=== PATIENT | female | born 1990 | race Caucasian/White ===

== ENCOUNTER 2022-01-01 14:19 | Outpatient (REF) | payer OTHER, SELFPAY ==
[2022-01-01 17:54] LABS: MANUAL DIFF FLAG NO
[2022-01-01 18:09] LABS: Alanine Aminotransferase 12 U/L (0-31); Albumin Level 4.2 g/dL (3.5-5.0); Alkaline Phosphatase 86 U/L (39-117); Anion Gap 13 (12-20); Aspartate Amino Transferase 19 U/L (5-31); Bilirubin Total 0.6 mg/dL (0.0-1.0); Blood Urea Nitrogen 16 mg/dL (9-16); Calcium 9.1 mg/dL (8.4-10.2); Carbon Dioxide 26 mmol/L (22-29); Chloride 104 mmol/L (96-108); Estimated Glomerular Filt Rate > 60; Glucose Random 90 mg/dL (60-115); Potassium 4.1 mmol/L (3.3-5.1); Sodium 139 mmol/L (135-145); Total Protein 7.2 g/dL (6.5-8.0)
[2022-01-01 18:14] LABS: Basophils Absolute Auto 0.1 X10*3/uL (0.0-0.2); Basophils Percent Auto 0.4 % (0-2); Eosinophils Absolute Auto 0.2 X10*3/uL (0.0-0.4); Eosinophils Percent Auto 1.6 % (0-4); Hemoglobin 13.9 g/dl (12.0-16.0); Imm Gran Abs Auto 0.03 X10*3/uL (0.00-0.03); Imm Gran Pct Auto 0.2 % (0.0-0.4); Lymphocytes Absolute Auto 2.6 X10*3/uL (1.2-4.9); Lymphocytes Percent Auto 21.5 % (20-40); Mean Corpuscular HGB Conc 33.9 g/dl (31.0-35.0); Mean Corpuscular Hemoglobin 31.7 pg (27.0-33.0); Mean Corpuscular Volume 93.6 fL (80.0-98.0); Mean Platelet Volume 11.1 fL (9.4-12.3); Monocytes Absolute Auto 0.6 X10*3/uL (0.1-1.2); Monocytes Percent Auto 5.3 % (2-11); Neutrophils Absolute Auto 8.6 x10*3/uL (2.0-8.3); Platelet Count 279 X10*3/uL (160-400); Red Blood Count 4.38 X10*6/uL (4.20-5.50); Red Cell Distribution Width 12.1 % (11.0-16.0); White Blood Count 12.2 X10*3/uL (4.8-10.8)
== END 2022-01-01 14:20 | disposition home or self-care (01) ==
LOC: HO.MANLDS 14:19
PROVIDERS: Visit Provider Physician Assistant
DX: J30.1 Allergic rhinitis due to pollen (principal)
CPT/HCPCS: 36415; 80053; 85025

== ENCOUNTER 2023-04-01 07:39 | Outpatient (REF) | payer OTHER, SELFPAY ==
[2023-04-01 13:56] LABS: MANUAL DIFF FLAG NO
[2023-04-01 14:04] LABS: Basophils Percent Auto 0.6 % (0-2); Eosinophils Absolute Auto 0.2 X10*3/uL (0.0-0.4); Hematocrit 40.6 % (37.0-47.0); Hemoglobin 13.6 g/dl (12.0-16.0); Imm Gran Abs Auto 0.01 X10*3/uL (0.00-0.03); Imm Gran Pct Auto 0.2 % (0.0-0.4); Lymphocytes Percent Auto 31.4 % (20-40); Mean Corpuscular HGB Conc 33.5 g/dl (31.0-35.0); Mean Corpuscular Hemoglobin 31.9 pg (27.0-33.0); Mean Corpuscular Volume 95.1 fL (80.0-98.0); Mean Platelet Volume 10.9 fL (9.4-12.3); Monocytes Absolute Auto 0.4 X10*3/uL (0.1-1.2); Monocytes Percent Auto 6.7 % (2-11); Neutrophils Absolute Auto 3.7 x10*3/uL (2.0-8.3); Neutrophils Percent Auto 58.1 % (45-73); Platelet Count 313 X10*3/uL (160-400); Red Blood Count 4.27 X10*6/uL (4.20-5.50); White Blood Count 6.4 X10*3/uL (4.8-10.8)
[2023-04-01 14:37] LABS: Erythrocyte Sedimentation Rate 5 MM/HR (0-20)
[2023-04-01 15:20] LABS: Alanine Aminotransferase 12 U/L (0-31); Albumin Level 3.9 g/dL (3.5-5.0); Alkaline Phosphatase 66 U/L (39-117); Amylase 56 U/L (28-100); Anion Gap 7 (12-20); Aspartate Amino Transferase 18 U/L (5-31); Blood Urea Nitrogen 12 mg/dL (9-16); C Reactive Protein < 0.10 mg/dL (< or = 0.50); Calcium 8.7 mg/dL (8.4-10.2); Carbon Dioxide 29 mmol/L (22-29); Chloride 107 mmol/L (96-108); Estimated Glomerular Filt Rate > 60; Gamma Glutamyl Transpeptidase 22 U/L (7-33); Glucose Random 58 mg/dL (60-115); Lipase 22 U/L (8-78); Potassium 3.3 mmol/L (3.3-5.1); Sodium 140 mmol/L (135-145)
== END 2023-04-01 07:40 | disposition home or self-care (01) ==
LOC: HO.MANLDS 07:39
PROVIDERS: Visit Provider Physician Assistant
DX: R19.7 Diarrhea, unspecified (principal)
CPT/HCPCS: 36415; 80053; 82150; 82977; 83690; 85025; 85652; 86140

== ENCOUNTER 2024-12-22 15:35 | Outpatient (REF) | payer OTHER, SELFPAY ==
--- NOTE | ~2024-12-22 | XR_ITS ---
EXAMINATION: XR SHOULDER, RIGHT CLINICAL INFORMATION: BICEPS TENDINITIS OF RT ICD-10 M75.21 COMPARISON: None available. TECHNIQUE: AP external rotation, Grashey, scapular Y, and axillary views of the right shoulder. FINDINGS: No acute cortical disruption or malalignment. No lytic or blastic lesions. Acromioclavicular joint gap is 3.3 mm. No soft tissue calcifications. No metallic or radiopaque foreign body. No subcutaneous emphysema. XR/XR shoulder RT min 2V IMPRESSION: Normal x-ray, right shoulder. Electronically signed by: Tray Arrington MD 12/22/2024 03:58 PM EDT
--- OUTSIDE RECORDS SUMMARY | 2024-12-22 19:04 | XMS_ITS | Data Portability ---
Author Organization [facility], Telehealth Patient Home Address [address] [place] [address] Assessment No assessment recorded. Plan of Treatment Reminders Order Date Submit Date Provider Last Modified By Organization Details Last Modified Time Details Appointments FOLLOW UP 15 2024 02:30P KHUSHBOO RANDOLPH Not available Not available Not available ANNUAL EXAM 2025 11:45A KHUSHBOO RANDOLPH Not available Not available Not available Lab CMP, serum or plasma 2024 025 [facility], [address] [place] [address], [place], [address], 05/31/2024 16:05:31 CBC w/ auto diff 2024 025 [facility], [address] [place] [address], [place], [address], 05/31/2024 16:05:31 lipid panel, blood 2024 025 [facility], [address] [place] [address], [place], [address], 05/31/2024 16:05:31 rapid strep group A, throat 2023 024 [facility], [address] [facility], [facility] [address], [place], [address], 04/16/2023 15:17:09 Referral dermatolo gist referral 2024 025 [email or web address] Rosa M eJnsen MD, [address] [place], [address], 06/01/2024 08:37:10 Procedures None recorded. Surgeries None recorded. Imaging XR, shoulder, 2 or more view 2024 [email or web address] [facility], [address] [place], [address], 12/22/2024 16:13:05 Medication Orders diclofena c sodium 75 mg tablet,de layed release 2024 025 [facility] #[id number], [address] [place], [id number], 12/22/2024 14:59:50 clotrimaz ole-betam ethasone 1 %-0.05 % topical cream 2024 025 [facility] #[id number], [address], [place], [id number], 05/31/2024 15:51:19 Medrol (Bossman) 4 mg tablets in a dose pack 2023 025 [facility] #79235, [address], [place], [phone], 05/31/2024 15:31:32 Zithromax Z-Bossman 250 mg tablet [email or web address] [place] [address] [address], [address], [place], [id number], 05/31/2024 15:29:54 Patient TargetsNo targets recorded. Patient InstructionsNo instructions recorded. Reason for Referral Globe [facility]er Referral for L esion of skin of face prevous pt, new spot on the nose, ?squamous cell Referring Physician: Deyanira Clifton, Internal Medicine, Encounter Date: 05/31/2024 Results Created Date Observation Date Name Description Value Unit Range Abnormal Flag Note LastModifiedBy Organization Detail LastModifiedTime 04/16/19 24 04/16/2023 rapid strep group A, throa t Strep negati ve Not Available [facility] [address] [facility] [address], [place], [address], 04/16/2023 14:58:23 12/23/19 25 12/22/2024 XR, shoul teddy, 2 or more view No observ ation record ed. [email or web address] [address] [place], [address], 12/22/2024 17:01:03 Result Notes None recorded. Problems Name Problem SNOMED Code Status Onset Date Resolution Date Notes Provider Name and Address Organization Details Recorded Time Allergic rhinitis 52380483 Active 2018 Not Available [facility] 0 13:14:09 Migraine 61291655 Active 2018 Not [address] 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 0 13:14:09 Eczema 72615280 Completed 201809/23/2018 [facility] 9 08:39:37 Acute otitis media 9448129 Active 2021 KHUSHBOO LORENZ [address] [place], [address], [facility] 2 14:03:09 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 525404088 Active 2022 KHUSHBOO LORENZ [address] [place], [address], [facility] 3 15:56:15 Diarrhea 91774729 Active 2023 KHUSHBOO LORENZ [address] [place], [address], [facility] 4 12:30:04 Sore throat 895822529 Active 2023 KHUSHBOO LORENZ [address] [place], [address], [facility] 4 10:13:27 Pain of ear 105949468 Active 2023 KHUSHBOO LORENZ [address] [place], [address], [facility] 4 10:16:38 Acute pharyngi tis 861556559 Active 2023 KHUSHBOO LORENZ [address] [place], [address], [facility] 4 15:53:55 Skin lesion 90380377 Active 2024 KHUSHBOO LORENZ [address] [place] [address], [address], [facility] 5 15:47:47 Lesion of skin of face 1681744812 06 Active 2024 KHUSHBOO LORENZ [address] [place] [address], [address], [facility] 5 15:48:06 Tinea corporis 34707438 Active 2024 KHUSHBOO LORENZ [address] [place] [address], [address], [facility] 5 15:50:44 Tendinit is of right biceps brachii Active 2024 KHUSHBOO LORENZ [address] [place] [address], [address], [facility] 5 14:57:13 Biceps tendinit is 123223810 Active 2024 KHUSHBOO LORENZ [address] [place] [address], [address], [facility] 5 16:42:04 Problem Notes None recorded. Procedures Surgical History Date Name Laterality Status Provider Name and Address Organization Details Recorded Time 04/29/19 18 Date of Last Pap Smear completed Ivonne Malone [facility] 09/23/2018 08:26:16 myringotomy and insertion of tympanic ventilation tube completed June FELIPE Whitley [address] [facility], [place], [address], [facility] 09/25/2018 10:24:16 Imaging Results None recorded. Procedure Notes None recorded. Medical Equipment None Reported. Allergies No known drug allergies Medications Name Sig Start Date Stop Date Status Note LastModified by Organization Details LastModified Time acetaminoph en 325 mg tablet 05/02 completed Not Available Not Available Not Available cetirizine 10 mg tablet TAKE 1 TABLET BY MOUTH DAILY active Not Available Not Available No t Available azithromyci n 250 mg tablet TAKE 2 TABLETS (500 MG) BY ORAL ROUTE ONCE DAILY FOR 1 DAY THEN 1 TABLET (250 MG) BY ORAL ROUTE ONCE DAILY FOR 4 DAYS 05/31 completed Not Available Not Available Not Available ibuprofen 800 mg tablet 05/02 completed Not Available Not Available Not Available fluconazole 150 mg tablet TAKE 1 TABLET BY MOUTH 1 TIME 05/02 completed Not Available Not Available Not Available triamcinolo ne acetonide 0.1 % topical cream APPLY A THIN LAYER TO THE AFFECTED AREA(S) BY TOPICAL ROUTE 2 TIMES PER DAY 05/31 completed Not Available Not Available Not Available Mi-Acid Gas Relief (simethicon e) 80 mg chewable tablet CHEW AND SWALLOW 1 TABLET BY MOUTH THREE TIMES DAILY NEEDED FOR GAS 05/02 completed Not Available Not Available Not Available clotrimazol e-betametha sone 1 %-0.05 % topical cream APPLY TOPICALLY TO THE AFFECTED AND SURROUNDI NG AREAS TWICE DAILY IN THE MORNING AND IN THE EVENING FOR 2 WEEKS active Not Available Not Available No t Available docusate sodium 100 mg capsule TAKE 1 CAPSULE BY MOUTH TWICE DAILY 05/02 completed Not Available Not Available Not Available diclofenac sodium 75 mg tablet,delano yed release Take 1 tablet twice a day by oral route with meal(s) for 30 days. 2024 active Not Available Not Available Not Avai lable hydrocortis one 2.5 % topical cream APPLY TO THE AFFECTED AREA OF THE INNER THIGH TWICE DAILY FOR UP 2 WEEKS OK TO MIX WITH KETOCONAZ OLE CREAM active Not Available Not Available No t Available methylpredn isolone 4 mg tablets in a dose pack FOLLOW PACKAGE DIRECTION S 05/31 completed Not Available Not Available Not Available ketoconazol e 2 % topical cream APPLY TWICE DAILY TO THE AFFECTED AREA FOR UP TO 2 WEEKS OK TO MIX WITH HYDROCORT ISONE active Not Available Not Available No t Available hydroxyzine HCl 10 mg tablet TAKE 1 TABLET BY MOUTH EVERY NIGHT AT BEDTIME NEEDED active Not Available Not Available No t Available clotrimazol e 1 % topical cream APPLY 1 APPLICATI ON TOPICALLY TWICE DAILY FOR 7 DAYS 05/02 completed Not Available Not Available Not Available oxycodone 5 mg tablet TAKE 1 TABLET BY MOUTH EVERY [address] WHILE TAKING THIS MEDICATIO N 11/08 completed Not Available Not Available Not Available Lessina 0.1 mg-20 mcg tablet TK 1 T PO QD 02/10 completed Not Available Not Available Not Available bupropion HCl XL 150 mg 24 hr tablet, extended release TAKE 1 TABLET BY MOUTH EVERY DAY active Not Available Not Available No t Available levocetiriz ine 05/27 completed OTC Not Available Not Available Not Available cetirizine 10 mg capsule Take 1 capsule every day by oral route for 90 days. 05/20 completed Not Available Not Available Not Available Flucelvax Quad (PF) 60 mcg (15 mcg x 4)/0.5 mL IM syringe 10/07 completed Not Available Not Available Not Available Afluria Qd (36 mos up)(PF)60 mcg (15 mcg x4)/0.5 mL IM syringe ADM 0.5ML IM UTD 02/10 completed Not Available Not Available Not Available Flowflex COVID-19 Antigen Home Test kit 05/20 completed Not Available Not Available Not Available Vitals Date Recorded Body weight Heart rate Oxygen saturation Oxygen saturation in Arterial blood by Pulse oximetry Systolic And Diastolic Provider Name and Address Organization Details Last Updated DateTime 4 66532.9 7 g 61 /min 98 % 98 % 118/72 mm[Hg] Dee [facility] 4 15:35:22 Date Recorded Body height Body mass index (BMI) Body weight Heart rate Oxygen saturation Oxygen saturation in Arterial blood by Pulse oximetry Systolic And Diastolic Provider Name and Address Organization Details Last Updated DateTime 5 167.64 cm 28.2 kg/m2 67366.6 6 g 61 /min 98 % 98 % 120/68 mm[Hg] Ana Thompson [facility] 5 15:31:21 Date Recorded Body height Body mass index (BMI) Body weight Oxygen saturation Oxygen saturation in Arterial blood by Pulse oximetry Heart rate Systolic And Diastolic Provider Name and Address Organization Details Last Updated DateTime 4 167.64 cm 26.8 kg/m2 37228.3 3 g 98 % 98 % 65 /min 110/80 mm[Hg] KHUSHBOO LORENZ [address] [place], [address], [facility] 4 10:02:54 Social History Question Answer Notes LastModified by Organizat ion Details LastModified Time Tobacco Smoking Status Former [facility]oker [facility] Available [facility]11/2020 03:36:23 What Was The Date Of Your Most Recent Tobacco Screening? 05/31/2024 Information not available 05/31/2024 How Many Years Have You Smoked Tobacco? 2 [id number] Information not available 01/11/2020 Sex: Unknown Functional Status Question Answer Note LastModified by Organization D etails LastModified Time Do you or have you ever used any other forms of tobacco or nicotine? No [email or web address] Information not available 09/03/2023 Mental Status None recorded. Family History Relationship Description Onset Age of this Age Resolved Age Notes LastModified by Organization Details LastModified Time Mother Coronary arterioscler osis 38 [place] [email or web address] Not available 09/23/2018 08:24:17 Mother Malignant neoplasm of cervix uteri 34 [email or web address] Not available 12/22/2024 14:34:02 Father Amyloidosis [email or web address] Not av ailable 12/22/2024 14:34:03 Medical History No medical history recorded. Gynecological History Statement/Question Response Menses Monthly Y Date of Last Pap Smear 04/29/2017 Age at Menarche 12 Date of LMP 09/24/2018 Obstetrics History GPAL:G 0 P 0 0 0 0 Immunizations Vaccine Type Date Status Note Provider Nam e and Address Organization Details Recorded Time COVID-19, mRNA, LNP-S, PF, 100 mcg/0.5mL dose or 50 mcg/0.25mL dose 1 completed Glory Gencarelle null, [facility] 05/20/2022 15:37:49 COVID-19, mRNA, LNP-S, PF, 100 mcg/0.5mL dose or 50 mcg/0.25mL dose 1 completed Glory Gencarelle null, [facility] 05/20/2022 15:37:49 COVID-19, mRNA, LNP-S, PF, 100 mcg/0.5mL dose or 50 mcg/0.25mL dose 1 completed Glory Gencarelle null, [facility] 05/20/2022 15:37:49 [facility] 7 [facility] 15:31:39 Td(adult) unspecified formulation 3 completed [facility] 05/20/2022 15:37:49 MMR 2 completed Ivonne Bucko null, [facility] 12/25/2018 15:31:39 MMR 6 completed [facility] 12/25/2018 15:31:39 meningococcal ACWY, unspecified formulation 7 completed [facility] 05/20/2022 15:37:49 varicella 7 completed [facility] 12/25/2018 15:31:39 HPV, unspecified formulation 7 completed Glory Gencarelle null, [facility] 05/20/2022 15:37:49 HPV, unspecified formulation 7 completed Glory Gencarelle null, [facility] 05/20/2022 15:37:49 HPV, unspecified formulation 8 completed [facility]22 15:37:49 Hep B, unspecified formulation 6 completed Glory Gencarelle null, [facility] 05/20/2022 15:37:49 Hep B, unspecified formulation 6 completed Glory Gencarelle null, [facility] 05/20/2022 15:37:49 Hep B, unspecified formulation 1 completed Glory Gencarelle null, [facility] 05/20/2022 15:37:49 OPV, Unspecified 1 completed Glory Gencarelle null, [facility] 05/20/2022 15:37:49 OPV, Unspecified 1 completed Glory Gencarelle null, [facility] 05/20/2022 15:37:49 OPV, Unspecified 3 completed Glory Gencarelle null, [facility] 05/20/2022 15:37:49 OPV, Unspecified 5 completed Glory Gencarelle null, [facility] 05/20/2022 15:37:49 Influenza, split virus, quadrivalent, preservative 9 completed Glory Gencarelle null, [facility] 05/20/2022 15:37:49 Influenza, split virus, quadrivalent, preservative 9 completed Glory Gencarelle null, [facility] 05/20/2022 15:37:49 Influenza, split virus, quadrivalent, preservative 0 completed Glory Gencarelle null, [facility] 05/20/2022 15:37:49 Influenza, split virus, quadrivalent, preservative 0 completed Glory Gencarelle null, [facility] 05/20/2022 15:37:49 Past Encounters Encounter ID Performer Location Encounter Start Date Encounter Closed Date Diagnosis/Indication Diagnosis SNOMED-CT Code Diagnosis ICD10 Code Diagnosis IMO Codes Diagnosis Note [id number] Arnol Juarez [facility] [address] [facility],[place] [address] 09/25/2018 10:01:39 09/25/2018 10:48:47 Adult health examination 058509253 Z00.00 Active or passive immunization 065827753 Z23 Body mass index 25-29 - overweight 686688405 Z68.28 Atypical chest pain 1025 10726 R07.89 [id number] Arnol Juarez [facility] [address] [facility],[place] [address] 12/25/2018 15:14:47 12/25/2018 16:31:17 Acute rhinosinusitis 289540748 J00 mucinex d fluids humidifier Acute otitis media 91540 03 H66.92 serous effusion if worsens will call will rx zpac [id number] Arnol Juarez DO [facility] [address] [facility],[place] [address] 10/08/2019 13:26:18 10/08/2019 13:50:52 Adult health examination 436339156 Z00.00 doing well no concerns BP well controlled with Active or passive immunization 114639947 Z23 needs tetanus will fu with pharmacies to see if they are doing them yet [id number] Arnol Juarez DO [facility] [address] [facility],[place] [address] 02/11/2020 15:47:41 02/11/2020 16:05:00 Pruritus ani 50690516 L29.0 well fu back up after changing to new loofa, Prep H wipes, and new body wash [id number] Arnol Juarez [facility] [address] [facility],[place] [address] 05/02/2021 15:24:05 05/02/2021 16:15:40 Active or passive immunization 663715420 Z23 needs tetanus will fu with pharmacies to see if they are doing them yet Adult heal th examination 154127444 Z00.00 doing well no concerns BP well controlled without medication Eczema 02003469 L20.9 for bilateral ears [id number] Arnol Juarez [facility] [address] [facility],[place] [address] 01/01/2022 13:49:29 01/01/2022 14:24:53 Acute otitis media 4493373 H65.03 will fu with medrol and z bossman Allergic rhinitis 800854 04 J30.1 will fu with lab work Adult heal th examination 325728332 Z00.00 doing well no concerns BP well controlled without medication [id number] Arnol Juarez [facility] [address] [facility], [place] [address] 05/20/2022 15:37:41 05/22/2022 08:35:14 Active or passive immunization 969639711 Z23 needs tetanus will fu with pharmacies to see if they are doing them yet Adult heal th examination 516050815 Z00.00 doing well no concerns BP well controlled without medication Adult atte ntion deficit hyperactivity disorder 331801342 F90.0 will set up with wellbutrin for mild inattentiv e form of ADHD [id number] Arnol Juarez [facility] [address] [facility], [place] [address] 04/16/2023 14:49:26 04/21/2023 15:47:27 Acute pharyngitis 620746044 J02.9 [id number] Arnol Juarez [facility] [address] [facility] [address] 05/28/2023 15:27:18 05/28/2023 16:13:27 Adult health examination 997994214 Z00.00 doing well no concerns BP well controlled without medication [id number] Arnol Juarez [facility] [address] [facility], [place] [address] 09/03/2023 09:52:18 09/03/2023 14:05:50 Sore throat 040801840 J02.8 will set up with abx and medrol Pain of ear 728170622 H9 2.03 will set up with abx and medrol bossman [id number] Arnol Juarez [facility] [address] [facility], [place] [address] 05/31/2024 15:21:19 06/01/2024 08:37:10 Lesion of skin of face 9686249788 06 L98.9 will set up with previous derm for skin check of the nose Adult heal th examination 302357906 Z00.00 BP is excellent Tinea corporis 70409236 B35.4 will set up with topical [id number] DO [facility] [address],[place] [address] 12/22/2024 14:33:30 12/22/2024 16:13:05 Depression screening 462754052 Z13.31 negative Tendinitis of right biceps brachii 1901422057 7107 M75.21 20826092 recommende d lab work open MRI only Health Concerns Section Related Observation LastModified by Organization Detai ls LastModified Time None Recorded Concern Status LastModified by Organization Details LastModified Time None Recorded Advance Directives Directive None Recorded Payers Insurance Date Sequence Insurance Name Policy Number Policy Mehta Covered Member ID Mehta Member ID Guarantor Name 12/19/[address] [place] [address] [id number] Angeline Healy [id number] Angeline Healy Notes Date Note Type Note Provider Name a nd Address Organization Details Recorded Time 4 text/html Annual WellnessReported by PatientSocial/Behavio ral HistoryFor diet and nutrition, patient reportshealthy diet,discussed vitamin and supplement use,discussed portion control,discussed maintaining calcium balance, anddiscussed diet improvement(stable). For fracture risk, patient reportsno history of fractures,no recent explained fracture,no sudden unexplained fractures, andno previous musculoskeletal injuries. For physical activity, patient reportsexercises on a regular basis,recent increase in physical activity,good physical condition,discussed weightbearing activities, anddiscussed exercise habits(active everyday). For additional lifestyle factors, patient reportsno tobacco useanddrinks alcohol (mild-moderate) (occasional)(caffeine intake moderate).Mental Status:For depression risk, patient reportsnever feels sad, empty, or tearful,no loss of interest in activities,no significant changes in weight,no sleep disturbances or insomnia,no agitation,no loss of energy,no feelings of worthlessness or guilt,no thoughts of suicide,no history of depression, andno history of mood disorders.Functional AbilityFor hearing, patient reportsno loss of hearing. For vision, patient reportsno vision problems. KHUSHBOO LORENZ [address] [place], [address], [facility] 05/28/2023 16:12:47 4 text/html ROS as noted in the HPI c/o sore throat the patient developed a sore throat 4 days ago, low grade fever with chills, did also have stomach bug for about 24 hours (diarrhea)the patient has a mild coughmild ear pain, mild sinus pain notable enlarged tonsilssore throat with redness and swelling headache, mild constantno body achesfeels run down KHUSHBOO LORENZ [address] [place], [address], [facility] 09/03/2023 10:23:01 5 text/html Annual WellnessReported by PatientSocial/Behavio ral HistoryFor diet and nutrition, patient reportshealthy diet,discussed vitamin and supplement use,discussed portion control,discussed maintaining calcium balance, anddiscussed diet improvement. For fracture risk, patient reportsno history of fractures,no recent explained fracture,no sudden unexplained fractures, andno previous musculoskeletal injuries. For physical activity, patient reportsexercises on a regular basis,recent increase in physical activity, andgood physical condition. For additional lifestyle factors, patient reportsno tobacco use,no alcohol intake, andstopped drinking alcohol.Mental Status:For depression risk, patient reportsnever feels sad, empty, or tearful,no loss of interest in activities,no significant changes in weight,no sleep disturbances or insomnia,no agitation,no loss of energy,no feelings of worthlessness or guilt,no thoughts of suicide,no history of depression, andno history of mood disorders.Functional AbilityFor hearing, patient reportsno loss of hearing. 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
--- OUTSIDE RECORDS SUMMARY | 2024-12-22 19:04 | XMS_ITS | Continuity of Care Document ---
Author Organization [facility] Address [address] [facility] [place] [address] Assessment No assessment recorded. Plan of Treatment Reminders Order Date Submit Date Provider Last Modified By Organization Details Last Modified Time Details Appointments FOLLOW UP 15 2024 02:30P M KHUSHBOO LORENZ Not available Not available Not available ANNUAL EXAM 2025 11:45A M KHUSHBOO LORENZ Not available Not available Not available Lab None recorded. Referral None recorded. Procedures None recorded. Surgeries None recorded. Imaging XR, shoulder, 2 or more view 2024 025 [facility], [facility] [place] [address] [address], [id number], 12/22/2024 16:13:05 Medication Orders diclofena c sodium 75 mg tablet,de layed release 2024 025 [id number] [address] [facility] [facility] [place], [id number], 12/22/2024 14:59:50 Patient TargetsNo targets recorded. Patient InstructionsNo instructions recorded. Reason for Referral None Reported. Results Created Date Observation Date Name Description Value Unit Range Abnormal Flag Note LastModifiedBy Organization Detail LastModifiedTime 12/23/1912/22/2024 XR, shoul teddy, 2 or more view No observ ation record ed. [email or web address] [id number] [place], [address], 12/22/2024 17:01:03 Result Notes None recorded. 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 Not Available [facility] 0 13:14:09 Eczema 91747729 Completed 201809/23/2018 [facility] 08:39:37 Acute otitis media 8749145 Active 2021 KHUSHBOO LORENZ [address] [place] [address], [phone], [facility] 2 14:03:09 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 657642948 Active 2022 KHUSHBOO LORENZ [address] [place] [address], [address], [facility] 3 15:56:15 Diarrhea 41487114 Active 2023 KHUSHBOO LORENZ [address] [place] [address], [address], [facility] 4 12:30:04 Sore throat 147059495 Active 2023 KHUSHBOO LORENZ [address] [place] [address], [address], [facility] 4 10:13:27 Pain of ear 429125797 Active 2023 KHUSHBOO LORENZ [address] [place] [address], [address], [facility] 4 10:16:38 Acute pharyngi tis 510027330 Active 2023 KHUSHBOO LORENZ [address] [place] [address], [address], [facility] 4 15:53:55 Skin lesion 14197495 Active 2024 KHUSHBOO LORENZ [address] [place], [address], [facility] 5 15:47:47 Lesion of skin of face 9284097525 06 Active 2024 KHUSHBOO LORENZ [address] [place], [address], [facility] 5 15:48:06 Tinea corporis 83208945 Active 2024 KHUSHBOO LORENZ [address] [place], [address], [facility] 5 15:50:44 Tendinit is of right biceps brachii Active 2024 KHUSHBOO LORENZ [address] [place], [address], [facility] [place] 14:57:13 Biceps tendinit is 314010484 Active 2024 KHUSHBOO LORENZ [address] [place], [address], [facility] 16:42:04 Problem Notes None recorded. Procedures Surgical History Date Name Laterality Status Provider Name and Address Organization Details Recorded Time 04/29/19 18 Date of Last Pap Smear completed Ivonne Malone [facility] 09/23/2018 08:26:16 myringotomy and insertion of tympanic ventilation tube completed June FELIPE Whitley [address] [place], [address], [facility] 09/25/2018 10:24:16 Imaging Results None recorded. Procedure [...] Not Available Not Available Not Available Vitals None Recorded Social History Question Answer Notes LastModified by Organizat ion Details LastModified Time Tobacco Smoking Status Former Smoker Not Available [facility] 01/11/2020 03:36:23 What Was The Date Of Your Most Recent Tobacco Screening? 05/31/2024 [email or web address] Information not available 05/31/2024 How Many Years Have You Smoked Tobacco? 2 [id number] Information not available 01/11/2020 Sex: Unknown Functional [...] LastModified Time Mother Coronary arterioscler osis 38 ID [email or web address] Not available 09/23/2018 08:24:17 Mother Malignant neoplasm of cervix uteri 34 Not available 12/22/2024 14:34:02 Father Amyloidosis [email or web address] Not av ailable 12/22/2024 14:34:03 Medical History [...] 50 mcg/0.25mL dose 1 [facility] 15:37:49 COVID-19, mRNA, LNP-S, PF, 100 mcg/0.5mL dose or 50 mcg/0.25mL dose 1 completed [facility] 15:37:49 COVID-19, mRNA, LNP-S, PF, 100 mcg/0.5mL dose or 50 mcg/0.25mL dose 1 completed Glory Gencarelle [facility] 05/20/2022 15:37:49 Tdap 7 completed Ivonne Kira [facility] 12/25/2018 15:31:39 Td(adult) unspecified formulation 3 completed Glory Gencarelle [facility] 05/20/2022 15:37:49 MMR 2 completed Ivonne Juan Diegoo [facility] 12/25/2018 15:31:39 MMR 6 completed Ivonne Kira [facility] 12/25/2018 15:31:39 meningococcal ACWY, unspecified formulation 7 completed Glory Gencarelle [facility] 05/20/2022 15:37:49 varicella 7 [facility] 15:31:39 HPV, unspecified formulation 7 completed Glory Gencarelle [facility] 05/20/2022 15:37:49 HPV, unspecified formulation 7 completed [facility]22 15:37:49 HPV, unspecified formulation 8 completed Glory Gencarelle null, [facility] 05/20/2022 15:37:49 Hep B, unspecified formulation 6 completed Glory Gencarelle null, [facility] 05/20/2022 15:37:49 Hep B, unspecified formulation 6 completed Glory Gencarelle null, [facility] 05/20/2022 15:37:49 Hep B, unspecified formulation 1 completed Glory Gencarelle null, [facility] 05/20/2022 15:37:49 OPV, Unspecified 1 completed Glory Gencarelle null, [facility] 05/20/2022 15:37:49 OPV, Unspecified 1 completed Glory Gencarelle null, [facility] 05/20/2022 15:37:49 OPV, Unspecified 3 completed Glory Gencarelle null, [facility] 05/20/2022 15:37:49 OPV, Unspecified 5 completed Glory Gencarelle null, [facility] 05/20/2022 15:37:49 Influenza, split virus, quadrivalent, preservative 9 completed Glory Gencarelle null, [facility] 05/20/2022 15:37:49 Influenza, split virus, quadrivalent, preservative 9 completed Glory Gencarelle null, [facility] 05/20/2022 15:37:49 Influenza, split virus, quadrivalent, preservative 0 completed Glory Gencarelle null, [facility] 05/20/2022 15:37:49 Influenza, split virus, quadrivalent, preservative 0 completed Glory Gencarelle null, [facility] 05/20/2022 15:37:49 Past Encounters Encounter ID Performer Location Encounter Start Date Encounter Closed Date Diagnosis/Indication Diagnosis SNOMED-CT Code Diagnosis ICD10 Code Diagnosis IMO Codes Diagnosis Note [id number] Arnol Juarez DO [facility] [address] [facility],[place] [address] 12/22/2024 14:33:30 12/22/2024 16:13:05 Depression screening 250716665 Z13.31 negative Tendinitis of right biceps brachii 6656580747 7107 M75.21 35181447 recommende d lab work open MRI only Health Concerns Section Related Observation LastModified by Organization Detai ls LastModified Time None Recorded Concern Status LastModified by Organization Details LastModified Time None Recorded Payers Encounter Date Sequence Insurance Name Policy Number Policy Mehta Covered Member ID Mehta Member ID Guarantor Name 12/22/2024 1 [facility] [id number] Angeline Healy [id number] Angeline Healy Notes Date Note Type Note Provider Name a nd Address Organization Details Recorded Time 12/22/2024 text/html ROS as noted in the HPI c/o right bicep pain the patient has right bicep painthe patient most likely has an 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
--- OUTSIDE RECORDS SUMMARY | 2024-12-22 19:04 | XMS_ITS | Encounter Summary ---
Author Organization [facility] Address [address] [place] [address] Phone Care Team Providers Care Rounder And Backer Name Role Phone Arnol Juarez DO Primary Care Provider [phone] Reason for Referral * Outpatient Procedure - Closed Specialty Diagnoses / Procedures Referred By Contac t Referred To Contact Diagnoses Atypical chest pain Procedures Adult Echo TTE Renae Whitley PA-C Phone: tel: fax: Referral ID Status Reason Start Date Expiration Date Visits Re quested Visits Authorized [id number] Closed 10/02/2018 10/02/2019 1 1 * - Closed Specialty Diagnoses / Procedures Referred By Contac t Referred To Contact Diagnoses Atypical chest pain Procedures Stress Test Exercise eRnae Whitley PA-C Phone: tel: fax: Referral ID Status Reason Start Date Expiration Date Visits Re quested Visits Authorized [id number] Closed 10/02/2018 10/02/2019 1 1 Encounter Details Date Type Department Care Team (Latest Contact Info) Description 10/02/2018 Transcribe Orders Virtual Department [address] [place] [address] Renae Whitley PA-C [address] [place] [address] Atypical chest pain (Primary Dx) Social History Tobacco Use Types Packs/Day Years Used Date Smoking Tobacco: Never Assessed Comments Unknown Sex and Gender Information Value Date Recorded Sex Assigned at Not on file Legal Sex Female 9:01 PM EDT Gender Identity Not on file Sexual Orientation Not on file documented as of this encounter Plan of Treatment Not on file documented as of this encounter Results * TTE COMPREHENSIVE (10/30/2018 9:19 AM EDT) Body Surface Area 1.9 m2 Height 165 cm Weight 77 kg Systolic BP 100 mmHg Diastolic BP 50 mmHg Left Atrium Dimension Anterior-Posterior 28 15 - 40 mm Aortic Valve Peak Velocity 140.0 cm/s Aortic Valve Peak Gradient 8 mmHg Aortic Sinus Diameter 23 mm Ascending Aorta Diameter 24 mm Inferior Vena Cava Diameter 17 0.0 - 21 mm Interventricular Septum Thickness 7 mm Left Ventricle Internal Diameter End Diastole 52 37 - 52 mm Left Ventricle Internal Diameter End Systole 32 22 - 35 mm Left Ventricular Outflow Tract Diameter 19.0 mm LVOT VTI REST 254 mm Left Ventricular Outflow Tract Velocity 1.2 m/s Left Ventricular Outflow Tract Gradient at Rest 6 mmHg Left Ventricular Posterior Wall Thickness 8 mm Ejection Fraction 70 50 - 75 Percent Mitral Valve Deceleration Time 141 ms Mitral Valve A Wave Speed 98.5 cm/s Mitral Valve E Wave Speed 93.6 cm/s Right Ventricle Basal Diameter 24.7 25 - 41 mm Tricuspid Valve Peak Velocity 1.8 m/s Raw LV EF% 62 % Left Atrial Volume 40 mL Left Atrial Volume Index 21.05 mL/m2 Right Ventricle Peak Systolic Pressure 16 mmHg Right Atrium Pressure Estimated 3 mmHg Right Ventricle to Right Atrium Pressure Gradient 13 mmHg Aortic Valve Sinus Index 1 12 19 - 27 mm Ascending Aorta Diameter 13 mm Aortic Sinus Index 12 mm Ascending Aorta Index 13 mm Anatomical Region Laterality Modality Heart Ultrasound Narrative 10/30/2018 2:55 PM EDT Left ventricular systolic function is normal. There are no segmental left ventricular wall motion abnormalities noted. The estimated ejection fraction is 70% (Normal 50-75%). Trace mitral regurgitation Normal pulmonary pressure No prior studies for comparison. Left Ventricle The left ventricular cavity size and wall thickness are normal. Left ventricular systolic function is normal. There are no segmental left ventricular wall motion abnormalities noted. The estimated ejection fraction is 70% (Normal 50-75%). The left ventricular ejection fraction was measured by the single dimension method. Left ventricular diastolic function appears within normal limits for age. There is no evidence of left ventricular thrombus. Right Ventricle The right ventricular size is normal. No evidence of right ventricular hypertrophy. The right ventricular systolic function is normal. Left Atrium The left atrium is normal in size. The left atrial anterior-posterior dimension measures 28 mm (normal 15-40 mm). The LA volume is 40 mL. The LA volume index is 21.05 mL/m2 (normal indexed value is 16-34 mL/m2). The pulmonary venous flow profiles are normal. Pulmonary vein connections were not well seen. Right Atrium The right atrium is normal in size. The IVC is normal in size (2.1cm or less). The IVC measures 17 mm (normal <=21 mm). The IVC demonstrates normal collapse with inspiration which is consistent with normal RA pressure. Mitral Valve The mitral valve appears normal. The E/A ratio is 1.0. The Med E' Tomasz is 9 cm/s and the Lat E' Tomasz is 20 cm/s. The E/E' AVG is 6.4. There is no evidence of mitral stenosis. There is trace mitral regurgitation detected by spectral and color Doppler. Tricuspid Valve The tricuspid valve appears normal. There is no evidence of tricuspid stenosis. There is evidence of trace tricuspid regurgitation by color and spectral Doppler. Normal pulmonary pressure. The RV systolic pressure was estimated from the peak TV regurgitant velocity. The estimated RV systolic pressure is 16 mmHg assuming a right atrial pressure of 3 mmHg. Aortic Valve The aortic valve appears normal. The aortic valve is tricuspid. There is no evidence of valvular aortic stenosis. The peak aortic valve gradient is 8 mmHg. There is no evidence of aortic regurgitation by color and spectral Doppler. The visualized portions of the thoracic aorta appear normal. Pulmonic Valve The pulmonary valve appears normal. There is no evidence of pulmonic stenosis. There is no evidence of pulmonary regurgitation by color and spectral Doppler. Pericardium There is no evidence of pericardial effusion. There no evidence of a pleural effusion. Interatrial Septum The interatrial septum appears normal. Interventricular Septum Interventricular septal motion appears normal. General Findings The image quality was good (2). Technique(s) used in the evaluation: Color flow Doppler and Spectral Doppler. The predominant rhythm during the study was sinus. Comparison Findings No prior studies for comparison. June Gutierrezdora GALE CV ECHO ORDERABLES Final Res ult * Stress Test Exercise (10/30/2018 8:53 AM EDT) Max BP Systolic 138 mmHg [facility] Max BP Diastolic 62 mmHg [facility] Max HR 196 BPM [facility] Resting HR 98 BPM [facility] Resting BP Systolic 100 mmHg [facility] Resting BP Diastolic 50 mmHg [facility] Peak METS 13.4 METS [facility] Peak HR 193 BPM [facility] Anatomical Region Laterality Modality Heart Other 10/30/2018 8:05 AM EDT 10/30/2018 8:53 AM EDT Narrative 10/30/2018 1:53 PM EDT Response to Stress The patient exercised for minutes seconds, achieving 13.4 METS at peak exercise. Baseline blood pressure was 100/50 mmHg, and baseline heart rate was 98 bpm. The patient achieved a peak heart rate of 193 bpm, which is% of their maximum predicted heart rate. Patient exercised for 11:52 minutes on a standard Masood protocol achieving 13.4 METs and 102% MPHR (196 BPM). The test was terminated due to fatigue. SUMMARY: 1. RESTING ECG: Normal sinus rhythm 2. EXERCISE ECG: No ischemic ECG changes with exercise 3. SYMPTOMS: No chest pain 4. PHYSIOLOGY: Appropriate exercise physiology. Resting heart rate of 91 bpm bud to a max heart rate of 196 bpm, this represents 102 % MPHR. Resting BP of 100/50 bud to a max BP of 38/62. Vital signs stable and returned to baseline prior to discharge from the lab. Achieved 13.4 METs consistent with good functional capacity for age. 5. ARRHYTHMIA: Occasional isolated PVC CONCLUSION: Normal ECG portion of exercise stress test without ECG changes suggestive of ischemia and with/out symptoms concerning for angina. Appropriate exercise physiology. Good functional capacity. Anderson treadmill score of +12 indicating low risk for cardiac event in the next 2 years. See attached stress report for full details. Luis Antonio Torres APRN with Dr. Mary . June Gutierrez GALE CV STRESS ORDERABLES Final R esult documented in this encounter Visit Diagnoses Diagnosis Atypical chest pain- Primary Other chest pain Atypical chest pain Other chest pain Atypical chest pain Other chest pain documented in this encounter Care Teams Rounder And Backer Relationship Specialty Start Date End Date Larry Arnol Pritchett DO [email or web address] PCP - General Internal Medicine 10/01/18 documented as of this encounter Additional Source Comments The information contained in this document represents components of the legal health record. It is not the complete legal health record.[facility]
--- OUTSIDE RECORDS SUMMARY | 2024-12-22 19:04 | XMS_ITS | Patient Health Record ---
Author Organization [facility] Address [address] [place] [address] Care Team Providers Care Mutuel Department Manager Name Role Phone Arnol Juarez MD Primary Care Provider Rae Burleson Unavailable [phone] Allergies No Known Allergies Reason For Referral No Information Medications Medication SIG (Take, Route, Frequency, Duration) Notes Start Date End Date Status ZyrTEC Active Immunizations Vaccine Route Administration Date Status Comme nts COVID-19 Moderna Vaccine Unknown 06/19/2020 Administere d 1st Dose 05/22/2020 Social History Tobacco Use: Social History Observation Description Date Details (start date - stop date) Never Smoker NA - NA Tobacco Use/Smoking Question Answer Notes Are you a: nonsmoker Additional Findings: Tobacco Non-User Current no n-smoker Alcohol Screen Question Answer Notes Did you have a drink contain ing alcohol in the past year? Yes How often did you have a dri nk containing alcohol in the past year? Monthly or less (1 point) Points 1 Interpretation Negative Tobacco use other than smoking: Question Answer Notes Are you an other tobacco user? No Problems Problem Type SNOMED Code ICD Code Onset Dates Problem Status W/U Status Risk Notes Problem Acquired hallux valgus (93490454) Hallux valgus (acquired), left foot (M20.12) Active confirmed Problem Acquired hallux valgus (74757864) Hallux valgus (acquired), right foot (M20.11) Active confirmed Plan Of Treatment Pending Test Test Name Order Date X ray : Foot, left 3V 12/12/2020 X ray : Foot, right 3V 12/12/2020 Insurance Providers Payer Name Payer Address Payer Phone Subscriber Number Group Number Insured Name Patient Relationship to Insured Coverage Start Date Coverage End Date [facility] [address] [place] [address] [id number] Angeline Healy Self - patient is the insured Medical (General) History Medical History History ICD Code headaches/migraines chicken pox Surgical History Surgery Date(Month/Year) 09/30/2020
--- OUTSIDE RECORDS SUMMARY | 2024-12-22 19:04 | XMS_ITS | Clinical Summary ---
Author Organization [facility] Address [address] [place] [phone] Phone Care Team Providers Care Child Support Case Officer Name Role Phone Arnol Juarez DO Primary Care Provider [phone] Social History Tobacco Use Types Packs/Day Years Used Date Smoking Tobacco: Never Assessed Education Answer Date Recorded Are you interested in more education? Not on gretel e 07/05/2022 Are you concerned about learning? Not on file 07/05/2022 No 07/05/2022 No 07/05/2022 Digital Access Answer Date Recorded No 08/05/2022 No 08/05/2022 No 08/05/2022 Reliable internet access at home? Not on file 08/05/2022 Device with a working camera? Not on file Comments Unknown Sex and Gender Information Value Date Recorded Sex Assigned at Not on file Legal Sex Female 9:01 PM EDT Gender Identity Not on file Sexual Orientation Not on file Last Filed Vital Signs Vital Sign Reading Time Taken Comments Blood Pressure 138/62 10/30/2018 8:43 AM EDT Pulse - - Temperature - - Respiratory Rate - - Oxygen Saturation - - Inhaled Oxygen Concentration - - Weight - - Height - - Body Mass Index - - Plan of Treatment Not on file Medical Devices Not on file Insurance [facility] [address] [place] [id number] Care Teams Child Support Case Officer Relationship Specialty Start Date End Date Arnol Juarez DO [email or web address] PCP - General Internal Medicine 10/01/18 Additional Source Comments The information contained in this document represents components of the legal health record. It is not the complete legal health record.[facility]
== END 2024-12-22 15:36 | disposition home or self-care (01) ==
LOC: HO.HMGCX 15:35
PROVIDERS: PCP Internal Medicine; Visit Provider Physician Assistant
DX: M75.21 Bicipital tendinitis, right shoulder (principal)
CPT/HCPCS: 73030

== ENCOUNTER → 2024-12-22 15:43 | Outpatient (BNV) | payer OTHER, SELFPAY | PROVIDERS: PCP Internal Medicine; Visit Provider Radiology Diagnostic Radiology | DX: M75.21 Bicipital tendinitis, right shoulder (principal) | CPT/HCPCS: 73030 ==